=== PATIENT | female | born 1980 | race Caucasian/White ===

== ENCOUNTER 2019-02-03 01:38 | Emergency (ER) | payer MEDICAID ==
[~2019-02-03] VITALS: Ht 175.3 cm; Wt 104.3 kg
[2019-02-03 01:48] VITALS: BP_SYST 125
--- NOTE | 2019-02-03 01:52 | NUR ---
Patient to ER bed 07 to gown for evaluation. Side rails up. Report given to KENY Lozano
--- NOTE | 2019-02-03 01:52 | NUR ---
ER Dr. Ruvalcaba at bedside examining patient.
[2019-02-03] MEDS ORDERED: NACL 0.9% 1,000 ML IV ONE (02:00)
--- NOTE | 2019-02-03 02:00 | NUR ---
Pt came to the ED for acute blood-tinged diarrhea and nausea which started about an hour prior to ED arrival. Reports after seeing the blood she felt anxious and shaky. Reports she takes Prozac for depression and she does not take any meds for anxiety. Denies fever, sob or chest pain. No other complaints/injuries noted. Will cont. to monitor.
[2019-02-03 02:34] LABS: BASOPHILS % (AUTO) 0.6 % (0.0-2.0); EOSINOPHILS # (AUTO) 0.3 K/uL (0.0-0.4); EOSINOPHILS % (AUTO) 3.6 % (0.0-4.0); HEMATOCRIT 37.6 % (36-48); HEMOGLOBIN 12.4 g/dL (12.0-16.0); LYMPHOCYTES # (AUTO) 3.4 K/uL (1.0-5.5); LYMPHOCYTES % (AUTO) 43.9 % (20.5-51.5); MEAN CORPUSCULAR HEMOGLOBIN 28 pg (27-31); MEAN CORPUSCULAR HGB CONC 33 % (32-36); MEAN CORPUSCULAR VOLUME 86 fL (79.0-98.0); MONOCYTES # (AUTO) 0.7 K/uL (0.0-1.0); MONOCYTES % (AUTO) 9.2 % (1.7-9.3); NEUTROPHILS # (AUTO) 3.3 K/uL (1.8-7.7); NEUTROPHILS % (AUTO) 42.7 % (40.0-70.0); PLATELET COUNT (AUTO) 264 K/uL (130-430); RED BLOOD CELL COUNT(AUTO) 4.38 MIL/uL (4.2-6.2); RED CELL DISTRIBUTION WIDTH 13.5 % (9.0-15.0); WHITE BLOOD COUNT (AUTO) 7.7 K/uL (4.8-10.8)
--- NOTE | 2019-02-03 02:38 | NUR ---
Pt went to CT scan via tucker per MD order. Tolerated well. Will cont. to monitor.
[2019-02-03 02:47] LABS: CALCIUM 7.9 mg/dL (8.4-11.0); CREATININE 0.74 mg/dL (0.55-1.30)
[2019-02-03 02:52] LABS: PROTHROMBIN TIME 9.7 SECS (9.5-12.5)
[2019-02-03 02:53] LABS: ALBUMIN 3.4 g/dL (3.4-4.8); TOTAL BILIRUBIN 0.1 mg/dL (0.0-1.0)
--- NOTE | 2019-02-03 03:00 | NUR ---
Pt resting comfortably in bed, No signs of acute distress. Will cont. to monitor.
[2019-02-03 04:59] VITALS: BP_SYST 125
--- NOTE | 2019-02-03 04:59 | NUR ---
Patient given written and verbal discharge instructions and verbalizes understanding. ER MD Dr. Ruvalcaba discussed with patient the results and treatment provided. Patient in stable condition. ID arm band removed. IV catheter removed intact and dressing applied, no active bleeding. Patient educated on pain management and to follow up with PMD within 2-3 days. Pain Scale 0/10. Opportunity for questions provided and answered. Medication side effect fact sheet provided.
== END 2019-02-03 04:59 | disposition home or self-care (01) ==
LOC: SED 01:38
DX: K64.8 Other hemorrhoids (principal); R19.7 Diarrhea, unspecified; F32.9 Major depressive disorder, single episode, unspecified
CPT/HCPCS: 36415; 74176; 80053; 81025; 82272; 85025; 85610; 85730; 96360; 99284; J7030

== ENCOUNTER 2019-04-07 07:42 | Emergency (ER) | payer MEDICAID, OTHER ==
[~2019-04-07] VITALS: Ht 175.3 cm; Wt 104.3 kg
[2019-04-07 07:42] VITALS: BP_SYST 136
--- NOTE | 2019-04-07 07:42 | NUR ---
BROUGHT BACK TO BED #6 AND TRIAGED. REPORT GIVEN TO LISHA
--- NOTE | 2019-04-07 07:48 | NUR ---
PT STATES THAT SHE AWOKE WITH SORE THROAT AND YAA EAR PRESSURE. PT STATES IT IS DIFFICULT TO SWALLOW AND SLIGHTLY HARD TO BREATHE. SPEAKING FULL SENTENCES, O2 SAT 98%.
--- NOTE | 2019-04-07 07:50 | NUR ---
DR CARDOZA AT BEDSIDE FOR EVALUATION
[2019-04-07 08:10] VITALS: BP_SYST 138
--- NOTE | 2019-04-07 08:10 | NUR ---
Patient given written and verbal discharge instructions and verbalizes understanding. ER MD discussed with patient the results and treatment provided. Patient in stable condition. ID arm band removed. Rx of PREDNISONE & PENICILLIN given. Patient educated on pain management and to follow up with PMD. Pain Scale 6/10 TOLERABLE FOR PATIENT. Opportunity for questions provided and answered.
== END 2019-04-07 08:10 | disposition home or self-care (01) ==
LOC: SED 07:42
DX: K12.2 Cellulitis and abscess of mouth (principal); F32.9 Major depressive disorder, single episode, unspecified
CPT/HCPCS: 99283

== ENCOUNTER 2022-05-21 15:34 | Emergency (ER) | payer OTHER ==
[~2022-05-21] VITALS: Ht 175.3 cm; Wt 127.0 kg
[2022-05-21 15:43] VITALS: BP_SYST 133
== END 2022-05-21 16:08 | disposition left against medical advice (07) ==
LOC: SED 15:34
DX: R10.9 Unspecified abdominal pain (principal); R11.10 Vomiting, unspecified; Z53.21 Procedure and treatment not carried out due to patient leaving prior to being seen by health care provider

== ENCOUNTER 2024-02-28 16:55 | Emergency (ER) | payer OTHER ==
[~2024-02-28] VITALS: Ht 172.7 cm; Wt 122.5 kg
[2024-02-28 16:55] VITALS: BP_SYST 117; PULSE 88; RESP 19; TEMP 97.5; O2SAT 97
[2024-02-28 17:50] LABS: BASOPHILS # (AUTO) 0.1 K/uL (0.0-0.2); BASOPHILS % (AUTO) 1.1 % (0.0-2.0); EOSINOPHILS % (AUTO) 0.1 % (0.0-4.0); HEMATOCRIT 38.4 % (36-48); HEMOGLOBIN 12.8 g/dL (12.0-16.0); LYMPHOCYTES # (AUTO) 1.5 K/uL (1.0-5.5); LYMPHOCYTES % (AUTO) 12.2 % (20.5-51.5); MEAN CORPUSCULAR HEMOGLOBIN 28 pg (27-31); MEAN CORPUSCULAR HGB CONC 33 % (32-36); MEAN CORPUSCULAR VOLUME 82 fL (79.0-98.0); MONOCYTES # (AUTO) 0.4 K/uL (0.0-1.0); MONOCYTES % (AUTO) 3.5 % (1.7-9.3); NEUTROPHILS % (AUTO) 83.1 % (40.0-70.0); PLATELET COUNT (AUTO) 297 K/uL (130-430); RED BLOOD CELL COUNT(AUTO) 4.67 MIL/uL (4.2-6.2); RED CELL DISTRIBUTION WIDTH 13.8 % (9.0-15.0)
[2024-02-28] MEDS: ONDANSETRON HCL 4 MG/2 ML VIAL IVP ONE (17:54)
[2024-02-28 18:05] LABS: SERUM HCG (QUALITATIVE) NEGATIVE (NEGATIVE)
[2024-02-28 18:10] LABS: INR 1.2 (0.8-1.2); PROTHROMBIN TIME 12.3 SECS (9.5-12.5)
[2024-02-28 18:12] LABS: BILIRUBIN,URINE NEGATIVE (NEGATIVE); BLOOD, URINE 3+ (NEGATIVE); CLARITY/URINE CLEAR (CLEAR); COLOR,URINE ORANGE (YELLOW); GLUCOSE,URINE NEGATIVE (NEGATIVE); KETONES,URINE TRACE (NEGATIVE); LEUKOCYTE ESTERASE ,URINE NEGATIVE (NEGATIVE); NITRITE, URINE NEGATIVE (NEGATIVE); PROTEIN URINE TRACE (NEGATIVE); UROBILINOGEN,URINE 0.2 (0.2-1.0)
[2024-02-28 18:43] LABS: ALBUMIN 3.1 g/dL (3.4-4.8); BILIRUBIN,DIRECT 0.3 mg/dL (0.0-0.3); CALCIUM 8.7 mg/dL (8.4-11.0); CREATININE 1.04 mg/dL (0.55-1.30); POTASSIUM 3.8 mmol/L (3.5-5.1); TOTAL BILIRUBIN 1.4 mg/dL (0.0-1.0)
[2024-02-28 18:50] LABS: BACTERIA,URINE None Seen /HPF (None Seen); URINE SULFO SALICYLIC ACID NEGATIVE (NEGATIVE); WBC,URINE 0-3 /HPF (0-3)
[2024-02-28 18:51] LABS: MUCUS,URINE None Seen /LPF (None Seen)
[2024-02-28] MEDS: MORPHINE 4 MG INJ. 4 MG/ML VIAL IVP ONE (19:34)
[2024-02-28] MEDS ORDERED: TRAM50TA2 PO (20:01)
[2024-02-28 20:29] VITALS: BP_SYST 104; PULSE 77; RESP 27; TEMP 98.2; O2SAT 96
[2024-02-29] MEDS ORDERED: HYDR-3927 PO (13:47)
[2024-02-29] MEDS ORDERED: NITR-85 PO (13:47)
[2024-02-29] MEDS ORDERED: IBUP-1971 PO (13:47)
[2024-02-29] MEDS ORDERED: ONDA-8 TL (14:37)
== END 2024-02-28 20:29 | disposition home or self-care (01) ==
LOC: SED 16:55
DX: N83.8 Other noninflammatory disorders of ovary, fallopian tube and broad ligament (principal); K76.0 Fatty (change of) liver, not elsewhere classified; R10.31 Right lower quadrant pain; R10.2 Pelvic and perineal pain; F32.A Depression, unspecified
CPT/HCPCS: 99285; 74176; 96374; 96375; 80076; 80048; 81001; 82150; 84703; 83690; 85025; 85610; 85730; 87210; 36415; 81025; 83605; 82397; J2405; J2270; 81000; 81015

== ENCOUNTER 2024-02-29 10:02 | Emergency (ER) | payer OTHER ==
[~2024-02-29] VITALS: Ht 172.7 cm; Wt 122.5 kg
[~2024-02-29 10:02] MED LIST: TRAM50TA2 PO
[2024-02-29 10:04] VITALS: BP_SYST 115; PULSE 86; RESP 20; TEMP 98.3; O2SAT 98
[2024-02-29] MEDS: KETOROLAC TROMETHAMINE 60 MG/2 ML VIAL IM ONE (10:25)
[2024-02-29 10:26] LABS: BASOPHILS % (AUTO) 0.2 % (0.0-2.0); EOSINOPHILS % (AUTO) 0.1 % (0.0-4.0); HEMATOCRIT 36.6 % (36-48); HEMOGLOBIN 12.2 g/dL (12.0-16.0); LYMPHOCYTES # (AUTO) 0.9 K/uL (1.0-5.5); LYMPHOCYTES % (AUTO) 7.1 % (20.5-51.5); MEAN CORPUSCULAR HEMOGLOBIN 27 pg (27-31); MEAN CORPUSCULAR HGB CONC 33 % (32-36); MEAN CORPUSCULAR VOLUME 82 fL (79.0-98.0); MONOCYTES # (AUTO) 0.7 K/uL (0.0-1.0); MONOCYTES % (AUTO) 5.6 % (1.7-9.3); NEUTROPHILS # (AUTO) 11.4 K/uL (1.8-7.7); PLATELET COUNT (AUTO) 283 K/uL (130-430); RED BLOOD CELL COUNT(AUTO) 4.46 MIL/uL (4.2-6.2); RED CELL DISTRIBUTION WIDTH 13.9 % (9.0-15.0); WHITE BLOOD COUNT (AUTO) 13.2 K/uL (4.8-10.8)
[2024-02-29] MEDS: HYDROcodone/ACETAMIN 10-325 MG TAB PO ONE (10:26)
[2024-02-29 10:38] LABS: SERUM HCG (QUALITATIVE) NEGATIVE (NEGATIVE)
[2024-02-29] MEDS: ONDANSETRON 4 MG ODT TAB PO ONE (10:42)
[2024-02-29 10:43] LABS: INR 1.2 (0.8-1.2)
[2024-02-29 11:20] LABS: ALANINE AMINOTRANSFERASE 17 U/L (12-78); ALBUMIN 2.8 g/dL (3.4-4.8); AMYLASE 19 U/L (0-100); ANION GAP 9 (5-15); ASPARTATE AMINOTRANSFERASE 16 U/L (10-37); BILIRUBIN,DIRECT 0.5 mg/dL (0.0-0.3); CALCIUM 8.5 mg/dL (8.4-11.0); CARBON DIOXIDE 24 mmol/L (23-29); CHLORIDE 101 mmol/L (98-107); CREATININE 0.85 mg/dL (0.55-1.30); GFR AFRICAN AMERICAN 93 mL/min (>90); GFR NON AFRICAN-AMERICAN 77 mL/min (>90); GLUCOSE 115 mg/dL (74-106); LIPASE 23 U/L (16-77); POTASSIUM 3.8 mmol/L (3.5-5.1); SODIUM SERUM 134 mmol/L (136-145); TOTAL BILIRUBIN 1.2 mg/dL (0.0-1.0); UREA NITROGEN, BLOOD 13 mg/dL (8-21)
[2024-02-29 11:21] LABS: BILIRUBIN,URINE 2+ (NEGATIVE); BLOOD, URINE 3+ (NEGATIVE); COLOR,URINE BROWN (YELLOW); GLUCOSE,URINE NEGATIVE (NEGATIVE); KETONES,URINE 2+ (NEGATIVE); LEUKOCYTE ESTERASE ,URINE NEGATIVE (NEGATIVE); NITRITE, URINE POSITIVE (NEGATIVE); PH,URINE 5.5 (5.0-8.0); PROTEIN URINE 2+ (NEGATIVE)
[2024-02-29 11:27] LABS: CLARITY/URINE HAZY (CLEAR)
[2024-02-29 12:00] LABS: BACTERIA,URINE FEW /HPF (None Seen); RBC,URINE 20-50 /HPF (0-3)
[2024-02-29 12:01] LABS: HYALINE CASTS, URINE 0-3 /LPF (None Seen); URINE AMORPHOUS URATE 1+ /HPF (None Seen)
[2024-02-29 12:02] LABS: MUCUS,URINE 4+ /LPF (None Seen)
[2024-02-29] MEDS ORDERED: IBUP-1971 PO (13:47)
[2024-02-29] MEDS ORDERED: HYDR-3927 PO (13:47)
[2024-02-29] MEDS ORDERED: NITR-85 PO (13:47)
[2024-02-29] MEDS: cefTRIAXone 1 GM in LIDOCAINE 1%, 20 ML MDV 2.1 ML IM ONE (14:11)
[2024-02-29] MEDS ORDERED: ONDA-8 TL (14:37)
[2024-02-29 14:46] VITALS: BP_SYST 117; PULSE 82; RESP 18; TEMP 98.2; O2SAT 98
== END 2024-02-29 14:48 | disposition home or self-care (01) ==
LOC: SED 10:02
DX: N39.0 Urinary tract infection, site not specified (principal); R10.2 Pelvic and perineal pain; F32.A Depression, unspecified; Z79.899 Other long term (current) drug therapy
CPT/HCPCS: 99285; 76830; 76857; 80076; 80048; 81001; 82150; 84703; 83690; 85025; 85610; 85730; 36415; 96372; 83605; 82397; Q0162; J0696; J1885; J2003; 81000; 81015